=== PATIENT | female | born 1955 | race African-American/Black ===

== ENCOUNTER → 2016-06-26 | Outpatient (REF) | payer OTHER ==
[~2016-06-26] MED LIST: CALC1TAB21 PO; FISH1000 PO; FLUTISP; LORATAB PO
[2016-06-26 12:36] LABS: ALBUMIN 3.9 GM/DL (3.2-5.2); ALKALINE PHOSPHATASE 79 U/L (45-117); ALT/SGPT 28 U/L (12-78); ANION GAP 6 MEQ/L (8-16); AST/SGOT 20 U/L (15-37); BILIRUBIN,TOTAL 0.7 MG/DL (0.2-1.0); BLOOD UREA NITROGEN 20 MG/DL (7-18); CALCIUM LEVEL 8.7 MG/DL (8.8-10.2); CARBON DIOXIDE LEVEL 30 MEQ/L (21-32); CHLORIDE LEVEL 108 MEQ/L (98-107); CHOLESTEROL LEVEL 188 MG/DL (<200); CREATININE FOR GFR 1.08 MG/DL (0.55-1.02); GLOMERULAR FILTRATION RATE > 60.0 (>45); GLUCOSE, FASTING 84 MG/DL (80-110); SODIUM LEVEL 144 MEQ/L (136-145); TOTAL PROTEIN 6.9 GM/DL (6.4-8.2); TRIGLYCERIDES LEVEL 130 MG/DL (<150)
== END ==
LOC: M SFHCPLAZ 09:37
PROVIDERS: ATTEND Nurse Practitioner Family
DX: E78.2 Mixed hyperlipidemia (principal); E55.9 Vitamin D deficiency, unspecified

== ENCOUNTER → 2016-06-26 | Outpatient (CLI) | payer OTHER ==
--- NOTE | 2016-06-26 10:47 | REPMRS ---
Patient History The patient states she has not had a clinical breast exam in over a year. No known family history of cancer. Digital Mammo Screening Bilat: June 26, 2016 - Exam #: [id number] Bilateral CC and MLO view(s) were taken. Technologist: Colleen Suárez, Technologist Prior study comparison: April 25, 2015, bilateral digital mammo screening bilat performed at [facility]. October 10, 2012, bilateral digital mammo screening bilat performed at [facility]. FINDINGS: There are scattered fibroglandular densities. There has been no change in the appearance of the mammogram from the prior studies. There is a mild amount of residual fibroglandular tissue which is fairly symmetric. There is no interval development of dominant mass, architectural distortion, or clustered microcalcification suggestive of malignancy. ASSESSMENT: BI-RADS/ACR category 1 mammogram. Negative. Recommendation Routine screening mammogram in 1 year (for women over age 40). This mammogram was interpreted with the aid of an FDA-approved computer-aided dectection system. Electronically Signed By: Chris Minor MD 06/26/16 [id number]
== END ==
LOC: M RAD 08:37
PROVIDERS: ATTEND Nurse Practitioner Family
DX: Z12.31 Encounter for screening mammogram for malignant neoplasm of breast (principal)

== ENCOUNTER → 2016-12-07 | Outpatient (REF) | payer OTHER ==
[2016-12-07 11:46] LABS: MEAN CORPUSCULAR HEMOGLOBIN 30.2 pg (27.0-33.0); MEAN CORPUSCULAR HGB CONC 31.4 g/dl (32.0-36.5); PLATELET COUNT, AUTOMATED 229 10^3/uL (150-450); RED CELL DISTRIBUTION WIDTH 12.5 % (11.5-14.5); WHITE BLOOD COUNT 5.5 10^3/uL (4.0-10.0)
[2016-12-07 12:18] LABS: VITAMIN B12 LEVEL 340 PG/ML
[2016-12-07 12:20] LABS: FOLATE 3.6 NG/ML
[2016-12-07 12:24] LABS: ALBUMIN 3.8 GM/DL (3.2-5.2); ALBUMIN/GLOBULIN RATIO 1.19 (1.00-1.93); ALKALINE PHOSPHATASE 88 U/L (45-117); ALT/SGPT 23 U/L (12-78); ANION GAP 7 MEQ/L (8-16); AST/SGOT 13 U/L (15-37); BILIRUBIN,TOTAL 0.3 MG/DL (0.2-1.0); BLOOD UREA NITROGEN 29 MG/DL (7-18); CALCIUM LEVEL 9.1 MG/DL (8.8-10.2); CARBON DIOXIDE LEVEL 27 MEQ/L (21-32); CHLORIDE LEVEL 110 MEQ/L (98-107); CHOLESTEROL LEVEL 256 MG/DL (<200); CREATININE FOR GFR 1.16 MG/DL (0.55-1.02); GLOMERULAR FILTRATION RATE > 60.0 (>45); GLUCOSE, FASTING 84 MG/DL (80-110); SODIUM LEVEL 144 MEQ/L (136-145); TRIGLYCERIDES LEVEL 436 MG/DL (<150)
== END ==
LOC: M SFHCPLAZ 08:04
PROVIDERS: ATTEND Nurse Practitioner Family
DX: R53.83 Other fatigue (principal); E78.2 Mixed hyperlipidemia; E55.9 Vitamin D deficiency, unspecified

== ENCOUNTER → 2017-04-21 | Outpatient (REF) | payer OTHER | LOC: M SFHCPLAZ 08:32 | DX: E78.2 Mixed hyperlipidemia (principal); E66.01 Morbid (severe) obesity due to excess calories; E55.9 Vitamin D deficiency, unspecified | CPT/HCPCS: 36415 ==

== ENCOUNTER → 2017-04-27 | Outpatient (CLI) | payer OTHER ==
[2017-04-27 08:40] LABS: ESTIMATED AVERAGE GLUCOSE 105 MG/DL (60-110); HEMOGLOBIN A1c 5.3 %
[2017-04-27 08:45] LABS: ALBUMIN 3.5 GM/DL (3.2-5.2); ALBUMIN/GLOBULIN RATIO 1.21 (1.00-1.93); ALKALINE PHOSPHATASE 82 U/L (45-117); ALT/SGPT 22 U/L (12-78); ANION GAP 8 MEQ/L (8-16); AST/SGOT 16 U/L (7-37); BILIRUBIN,TOTAL 0.3 MG/DL (0.2-1.0); BLOOD UREA NITROGEN 14 MG/DL (7-18); CALCIUM LEVEL 8.7 MG/DL (8.8-10.2); CARBON DIOXIDE LEVEL 27 MEQ/L (21-32); CHLORIDE LEVEL 112 MEQ/L (98-107); CHOLESTEROL LEVEL 116 MG/DL (<200); CHOLESTEROL RISK RATIO 3.222 (<5); CREATININE FOR GFR 1.14 MG/DL (0.55-1.30); FREE T4 0.88 NG/DL (0.76-1.46); GLOMERULAR FILTRATION RATE > 60.0 (>45); GLUCOSE, FASTING 91 MG/DL (70-100); HDL CHOLESTEROL 36 MG/DL (>40); LDL CHOLESTEROL 47.4 MG/DL (<100); NON-HDL-C 80 MG/DL; POTASSIUM SERUM 3.8 MEQ/L (3.5-5.1); SODIUM LEVEL 147 MEQ/L (136-145); TOTAL PROTEIN 6.4 GM/DL (6.4-8.2); TRIGLYCERIDES LEVEL 163 MG/DL (<150)
[2017-04-27 10:01] LABS: TOTAL 25(OH) VITAMIN D 48.7 NG/ML (30.0-100.0)
== END ==
LOC: M LAB 07:33
DX: E78.2 Mixed hyperlipidemia (principal); E66.01 Morbid (severe) obesity due to excess calories; E55.9 Vitamin D deficiency, unspecified
CPT/HCPCS: 84443

== ENCOUNTER 2017-06-10 05:56 | Day surgery (SDC) | payer OTHER ==
[2017-06-10] MEDS ORDERED: ACETAMINOPHEN 325 MG TAB PO (06:00)
[2017-06-10] MEDS: TROPICAMIDE 1% OPHTH SOLN 2ML OS (06:30)
[2017-06-10] MEDS: PROPARACAINE 0.5% OPHTH SOL 15ML OS (06:30)
[2017-06-10] MEDS: OFLOXACIN 0.3 % (OCUFLOX) OPTH SOL 5ML OS (06:30)
[2017-06-10] MEDS: PHENYLEPHRINE 2.5% OPHTH SOL 2ML OS (06:30)
[2017-06-10] MEDS ORDERED: fentaNYL 100 MCG/2 ML INJECTION (J3010) As Ordered (06:52)
[2017-06-10] MEDS ORDERED: MIDAZOLAM INJ 2 MG/2 ML VIAL (J2250) As Ordered (06:52)
[2017-06-10] MEDS: POVIDONE-IODINE 5% OPHTH PREP SOL 30ML As Ordered (07:24)
[2017-06-10] MEDS: LIDOCAINE 0.75%/EPINEPHRINE 0.025% IN BSS 1ML SYR INTRACAMERAL (OR ONLY) As Ordered (07:32)
[2017-06-10] MEDS: BALANCED SALT IRRIGATION SOLUTION 500ML BAG (FOR OR EYE MACHINE) As Ordered (07:32)
[2017-06-10] MEDS: CEFUROXIME 1MG/0.1ML INTRACAMERAL INJ As Ordered (07:32)
[2017-06-10] MEDS: DUOVISC (0.50ML VISCOAT/0.55ML PROVISC) OPHTH KIT As Ordered (07:32)
[2017-06-10] MEDS ORDERED: TRIMETHOBENZAMIDE 300 MG CAP PO (08:00)
== END 2017-06-10 08:25 | disposition home or self-care (01) ==
LOC: M SDC 05:56
DX: H25.12 Age-related nuclear cataract, left eye (principal); E78.5 Hyperlipidemia, unspecified; G47.33 Obstructive sleep apnea (adult) (pediatric); M12.9 Arthropathy, unspecified; E66.01 Morbid (severe) obesity due to excess calories; Z68.41 Body mass index [BMI] 40.0-44.9, adult; Z79.899 Other long term (current) drug therapy; Z90.710 Acquired absence of both cervix and uterus
CPT/HCPCS: 66984

== ENCOUNTER → 2018-01-14 | Outpatient (CLI) | payer OTHER ==
[2018-01-14 13:38] LABS: ALBUMIN 3.8 GM/DL (3.2-5.2); ALBUMIN/GLOBULIN RATIO 1.27 (1.00-1.93); ALKALINE PHOSPHATASE 79 U/L (45-117); ALT/SGPT 25 U/L (12-78); ANION GAP 6 MEQ/L (8-16); AST/SGOT 18 U/L (7-37); BILIRUBIN,TOTAL 0.7 MG/DL (0.2-1.0); BLOOD UREA NITROGEN 15 MG/DL (7-18); CALCIUM LEVEL 8.8 MG/DL (8.8-10.2); CARBON DIOXIDE LEVEL 32 MEQ/L (21-32); CHLORIDE LEVEL 107 MEQ/L (98-107); CHOLESTEROL LEVEL 205 MG/DL (<200); CHOLESTEROL RISK RATIO 4.456 (<5); CREATININE FOR GFR 0.97 MG/DL (0.55-1.30); GLOMERULAR FILTRATION RATE > 60.0 (>45); GLUCOSE, FASTING 65 MG/DL (70-100); HDL CHOLESTEROL 46 MG/DL (>40); LDL CHOLESTEROL 139 MG/DL (<100); NON-HDL-C 159 MG/DL; SODIUM LEVEL 145 MEQ/L (136-145); TOTAL PROTEIN 6.8 GM/DL (6.4-8.2); TRIGLYCERIDES LEVEL 101 MG/DL (<150)
[2018-01-14 13:40] LABS: TOTAL 25(OH) VITAMIN D 63.8 NG/ML (30.0-100.0)
== END ==
LOC: M LAB 12:18
DX: E78.2 Mixed hyperlipidemia (principal)
CPT/HCPCS: 80053

== ENCOUNTER → 2018-05-19 | Outpatient (REF) | payer OTHER ==
[~2018-05-19] MED LIST changes: +CEFUROXIME; +FLUT50SP12; -FLUTISP; +ROSU10TA5 PO; +TESS100C PO; +VENTAER INH; +VITA50005 PO
[2018-05-19 13:14] LABS: INFLUENZA A AMPLIFICATION NEGATIVE (NEGATIVE); INFLUENZA B AMPLIFICATION NEGATIVE (NEGATIVE)
== END ==
LOC: M LAB REF 12:04
PROVIDERS: ATTEND Physician Assistant Medical
DX: J11.1 Influenza due to unidentified influenza virus with other respiratory manifestations (principal)

== ENCOUNTER 2018-05-22 09:31 | Emergency (ER) | payer OTHER ==
[~2018-05-22] VITALS: Ht 167.6 cm; Wt 109.1 kg
[~2018-05-22 09:31] MED LIST changes: -CEFUROXIME; -TESS100C PO; -VENTAER INH
[2018-05-22] MEDS ORDERED: CEFUROXIME (09:38)
[2018-05-22] MEDS ORDERED: ALBUTEROL SULFATE 2.5 MG/0.5 ML INH NEB SOLN NEB ONE (10:00)
[2018-05-22] MEDS ORDERED: predniSONE 20 MG TAB PO ONE (10:00)
--- NOTE | 2018-05-22 10:25 | REP ---
Clinical: Cough . Comparison: 04/11/2014 . Technique: PA and lateral. Findings: The mediastinum and cardiac silhouette are normal. The lung hussein are clear and without acute consolidation, effusion, or pneumothorax. The skeletal structures are intact and normal. Impression: 1. No acute cardiopulmonary process. Electronically Signed by Natanael Albrecht MD 05/22/2018 10:16 A
[2018-05-22] MEDS ORDERED: TESS100C PO (11:03)
[2018-05-22] MEDS ORDERED: VENTAER INH (11:03)
[2018-05-22 11:10] VITALS: BP 114/62
== END 2018-05-22 11:13 | disposition home or self-care (01) ==
LOC: M ED 09:31
DX: J06.9 Acute upper respiratory infection, unspecified (principal); E78.00 Pure hypercholesterolemia, unspecified; Z79.899 Other long term (current) drug therapy

== ENCOUNTER → 2018-07-18 | Outpatient (CLI) | payer OTHER ==
[~2018-07-18] MED LIST changes: +CEFUROXIME; +TESS100C PO; +VENTAER INH
--- NOTE | 2018-07-18 17:40 | REPMRS ---
Patient History The patient states she had a clinical breast exam in May 2018.No known family history of cancer. 3D TOMOSYNTHESIS WAS PERFORMED. Digital Mammo Screening Bilat: July 18, 2018 - Exam #: [id number] Bilateral CC and MLO view(s) were taken. Technologist: Ana Rosa Richardson, Technologist Prior study comparison: June 26, 2016, bilateral digital mammo screening bilat performed at [facility]. April 25, 2015, bilateral digital mammo screening bilat performed at [facility]. FINDINGS: There are scattered fibroglandular densities. There has been no change in the appearance of the mammogram from the prior studies. There is a mild amount of residual fibroglandular tissue which is fairly symmetric. There is no interval development of dominant mass, architectural distortion, or clustered microcalcification suggestive of malignancy. Assessment: BI-RADS/ACR category 1 mammogram. Negative Mammogram. Recommendation Routine screening mammogram in 1 year (for women over age 40). This mammogram was interpreted with the aid of an FDA-approved computer-aided dectection system. Electronically Signed By: Chris Minor MD 07/18/18 [id number]
== END ==
LOC: M RAD 16:45
PROVIDERS: ATTEND Nurse Practitioner Family
DX: Z12.31 Encounter for screening mammogram for malignant neoplasm of breast (principal)

== ENCOUNTER → 2018-09-23 | Outpatient (CLI) | payer OTHER ==
[~2018-09-23] MED LIST changes: -ROSU10TA5 PO; +ROSU10TA6 PO
[2018-09-23 07:56] LABS: ALBUMIN 3.8 GM/DL (3.2-5.2); ALT/SGPT 24 U/L (12-78); BILIRUBIN,TOTAL 0.6 MG/DL (0.2-1.0); BLOOD UREA NITROGEN 19 MG/DL (7-18); CALCIUM LEVEL 9.5 MG/DL (8.8-10.2); CARBON DIOXIDE LEVEL 29 MEQ/L (21-32); CHLORIDE LEVEL 110 MEQ/L (98-107); CHOLESTEROL LEVEL 191 MG/DL (<200); CHOLESTEROL RISK RATIO 4.658 (<5); GLOMERULAR FILTRATION RATE > 60.0 (>45); GLUCOSE, FASTING 90 MG/DL (70-100); HDL CHOLESTEROL 41 MG/DL (>40); LDL CHOLESTEROL 121 MG/DL (<100); NON-HDL-C 150 MG/DL; POTASSIUM SERUM 4.3 MEQ/L (3.5-5.1); SODIUM LEVEL 144 MEQ/L (136-145); TOTAL PROTEIN 6.9 GM/DL (6.4-8.2); TRIGLYCERIDES LEVEL 147 MG/DL (<150)
[2018-09-23 13:01] LABS: TOTAL 25(OH) VITAMIN D 31.2 NG/ML (30.0-100.0)
== END ==
LOC: M LAB 06:13
PROVIDERS: ATTEND Nurse Practitioner Family
DX: E78.2 Mixed hyperlipidemia (principal); E55.9 Vitamin D deficiency, unspecified

== ENCOUNTER → 2019-04-04 | Outpatient (CLI) | payer OTHER ==
--- NOTE | 2019-04-04 21:28 | ECHO ---
DATE OF PROCEDURE: 04/04/2019 REFERRING PROVIDER: CHOLO Henao PATIENT LOCATION: Outpatient. REASON FOR THE STUDY: Heart murmur. 2D MEASUREMENTS: IVS: 1.4 cm LV: 4.4 cm LVPW: 0.94 cm LA: 4.4 cm Aorta: 2.7 cm IVC: 1.76 cm DOPPLER MEASUREMENTS: Peak velocity across the aortic valve: 1.7 meters per second. Peak velocity across the LVOT: 1.2 meters per second. Mitral E: 1.1, Mitral A: 1.0 with a ratio of 1.1. Maximum tricuspid valve velocity: 2.6 meters per second. 2D COMMENTS: 1. Normal left ventricular size, wall thickness, and normal global left ventricular systolic function. The estimated left ventricular systolic ejection fraction is 60-65%. 2. Mildly enlarged left atrium. Normal right atrium and right ventricle. 3. The atrial septum appeared to be normal without evidence of defect or shunt. 4. Normal aortic root. 5. No pericardial effusion seen. 6. Mildly calcified aortic valve with normal leaflet excursion. Normal mitral valve, tricuspid valve, and pulmonic valve. The proximal pulmonary artery branches were not well visualized. 7. The inferior vena cava was normal in size, central venous pressure is most likely normal. DOPPLER: It detects trace aortic regurgitation, trace mitral regurgitation, mild tricuspid regurgitation. The calculated pulmonary artery systolic pressure varies between 30-40 mmHg. Assessment of the left ventricular diastolic function appeared to be normal. IMPRESSION: 1. Normal global left ventricular systolic and diastolic function. 2. Aortic valve sclerosis with trace aortic regurgitation and trivial aortic stenosis. 3. Trace mitral regurgitation with a mildly enlarged left atrium. 4. Mild tricuspid regurgitation with mild pulmonary hypertension. 5. Global Longitudinal Strain/GLS was calculated at minus 16%.
== END ==
LOC: M CARPUL 10:16
PROVIDERS: ATTEND Nurse Practitioner Family
DX: R01.1 Cardiac murmur, unspecified (principal)

== ENCOUNTER 2019-07-29 10:27 | Emergency (ER) | payer OTHER ==
[~2019-07-29] VITALS: Ht 170.2 cm; Wt 125.8 kg
[2019-07-29 13:13] VITALS: BP 125/69
--- NOTE | 2019-07-29 13:18 | REP ---
An lower extremity duplex, left: 07/29/2019. Indication: Left lower extremity swelling and pain. Comparison: None. Findings: Duplex and color flow Doppler interrogation of the left lower extremity deep venous system was performed. Compressibility, augmentation and color flow as well as Doppler flow was demonstrated within the common femoral, superficial, femoral and popliteal veins. Posterior tibial vein also demonstrated flow along its proximal visualized extent. Impression: No DVT. Electronically Signed by Toro Soliz DO 07/29/2019 01:10 P
--- NOTE | 2019-07-29 15:26 | REP ---
Four views left femur and five views left knee: 07/29/2019. Indication: Left leg pain. Comparison: None. Findings: There is no acute fracture, subluxation or dislocation. Lobulated calcifications are noted in the suprapatellar region. There is narrowing of the medial compartment. Lateral and medial osteophytic spurring of the tibia and femur are noted at the knee joint. There is considerable narrowing of the patellofemoral compartment. No lytic or blastic lesions are present. Impression: No acute fracture. 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 Electronically Signed by Toro Soliz DO 07/29/2019 03:18 P
--- NOTE | 2019-07-29 15:26 | REP ---
Four views left femur and five views left knee: 07/29/2019. Indication: Left leg pain. Comparison: None. Findings: There is no acute fracture, subluxation or dislocation. Lobulated calcifications are noted in the suprapatellar region. There is narrowing of the medial compartment. Lateral and medial osteophytic spurring of the tibia and femur are noted at the knee joint. There is considerable narrowing of the patellofemoral compartment. No lytic or blastic lesions are present. Impression: No acute fracture. 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 Electronically Signed by Toro Soliz DO 07/29/2019 03:18 P
== END 2019-07-29 13:16 | disposition home or self-care (01) ==
LOC: M ED 10:27
DX: M25.562 Pain in left knee (principal); M79.605 Pain in left leg

== ENCOUNTER → 2019-08-09 | Outpatient (CLI) | payer OTHER ==
[2019-08-09 13:00] LABS: ALBUMIN 3.9 GM/DL (3.2-5.2); ALT/SGPT 21 U/L (12-78); BILIRUBIN,TOTAL 0.7 MG/DL (0.2-1.0); BLOOD UREA NITROGEN 12 MG/DL (7-18); CARBON DIOXIDE LEVEL 29 MEQ/L (21-32); CHLORIDE LEVEL 110 MEQ/L (98-107); CHOLESTEROL LEVEL 215 MG/DL (<200); CHOLESTEROL RISK RATIO 5.657 (<5); CREATININE FOR GFR 1.07 MG/DL (0.55-1.30); FREE T4 0.95 NG/DL (0.76-1.46); GLOMERULAR FILTRATION RATE > 60.0 (>45); GLUCOSE, FASTING 76 MG/DL (70-100); HDL CHOLESTEROL 38 MG/DL (>40); LDL CHOLESTEROL 137 MG/DL (<100); NON-HDL-C 177 MG/DL; POTASSIUM SERUM 3.9 MEQ/L (3.5-5.1); SODIUM LEVEL 145 MEQ/L (136-145); TRIGLYCERIDES LEVEL 198 MG/DL (<150)
[2019-08-09 13:03] LABS: TOTAL 25(OH) VITAMIN D 37.5 NG/ML (30.0-100.0)
== END ==
LOC: M LAB 11:33
PROVIDERS: ATTEND Nurse Practitioner Family
DX: E78.2 Mixed hyperlipidemia (principal); E55.9 Vitamin D deficiency, unspecified; E66.01 Morbid (severe) obesity due to excess calories; Z68.41 Body mass index [BMI] 40.0-44.9, adult

== ENCOUNTER → 2019-12-26 | Outpatient (CLI) | payer OTHER ==
--- NOTE | 2019-12-26 18:21 | REPMRS ---
Patient History The patient states she has not had a clinical breast exam in over a year. No known family history of cancer. Digital Woman Screen Mammo: December 26, 2019 - Exam #: [id number] Bilateral CC and MLO view(s) were taken. Technologist: Xochitl Paulino, Technologist Prior study comparison: July 18, 2018, bilateral digital mammo screening bilat, performed at [facility]. June 26, 2016, bilateral digital mammo screening bilat, performed at [facility]. April 25, 2015, bilateral digital mammo screening bilat, performed at [facility]. FINDINGS: There are scattered fibroglandular densities. The Volpara volumetric breast density category is:B. There has been no change in the appearance of the mammogram from the prior studies. There is a mild amount of scattered fibroglandular density which is fairly symmetric. There is no interval development of dominant mass, architectural distortion, or grouped microcalcification suggestive of malignancy. 3-D tomosynthesis shows no additional findings. Assessment: BI-RADS/ACR category 1 mammogram. Negative Mammogram. Recommendation Routine screening mammogram of both breasts in 1 year (for women over age 40). This patient's Lifetime Breast Cancer Risk is estimated at 3.9 %. This mammogram was interpreted with the aid of an FDA-approved computer-aided dectection system. Electronically Signed By: Mohinder Brambila MD 12/26/19 [id number]
== END ==
LOC: M WHC 12:59
PROVIDERS: ATTEND Nurse Practitioner Family
DX: Z12.31 Encounter for screening mammogram for malignant neoplasm of breast (principal)

== ENCOUNTER → 2020-06-09 | Outpatient (CLI) | payer OTHER ==
--- NOTE | 2020-06-11 15:35 | SLEEPCENT ---
DATE: 06/09/2020 ORDERED BY: Stephenie Lal Nocturnal polysomnography was performed for the retitration of pressure therapy in this patient with obstructive sleep apnea syndrome. For testing, ResMed AirTouch F20 full-face mask of large size. There was 14 of water pressure applied to the circuit, and the lights were extinguished. There was 8 hours and 6 minutes of data reviewed. There was 423 minutes of sleep identified. Sleep latency was normal at 11.5 minutes. REM latency was short at 47 minutes. Sleep architecture was good with four REM cycles. Overall sleep efficiency was 88%. The electrocardiogram showed a sinus rhythm with an average heart rate of 60 beats per minute. EEG showed normal waveforms for wake and sleep. Respiratory events were fully palliated with CPAP at a pressure of 14. There was some minor activity in the limb leads. Limb movement arousal index was 6. IMPRESSION: Obstructive sleep apnea syndrome (G47.33). RECOMMENDATION: Nightly use of pressure therapy, 14 cm of water.
== END ==
LOC: M SLEEP 20:00
PROVIDERS: ATTEND Nurse Practitioner Adult Health
DX: G47.33 Obstructive sleep apnea (adult) (pediatric) (principal)

== ENCOUNTER → 2020-09-16 | Outpatient (CLI) | payer OTHER ==
[~2020-09-16] MED LIST changes: +D-101000
[2020-09-16 18:12] LABS: ALBUMIN 4.1 GM/DL (3.2-5.2); ALT/SGPT 24 U/L (12-78); BILIRUBIN,TOTAL 0.6 MG/DL (0.2-1.0); BLOOD UREA NITROGEN 13 MG/DL (7-18); CALCIUM LEVEL 8.8 MG/DL (8.8-10.2); CARBON DIOXIDE LEVEL 28 MEQ/L (21-32); CHLORIDE LEVEL 109 MEQ/L (98-107); CHOLESTEROL LEVEL 150 MG/DL (<200); CHOLESTEROL RISK RATIO 3.333 (<5); GLOMERULAR FILTRATION RATE > 60.0 (>45); GLUCOSE, FASTING 67 MG/DL (70-100); HDL CHOLESTEROL 45 MG/DL (>40); LDL CHOLESTEROL 79 MG/DL (<100); NON-HDL-C 105 MG/DL; POTASSIUM SERUM 4.2 MEQ/L (3.5-5.1); SODIUM LEVEL 143 MEQ/L (136-145); TOTAL PROTEIN 7.1 GM/DL (6.4-8.2); TRIGLYCERIDES LEVEL 128 MG/DL (<150)
== END ==
LOC: M LAB 14:52
PROVIDERS: ATTEND Nurse Practitioner Family
DX: E78.2 Mixed hyperlipidemia (principal)

== ENCOUNTER 2020-11-12 10:40 | Emergency (ER) | payer OTHER ==
[~2020-11-12] VITALS: Ht 167.6 cm; Wt 117.6 kg
[2020-11-12 10:40] VITALS: BP 143/78
[~2020-11-12 10:40] MED LIST changes: -D-101000
[2020-11-12] MEDS ORDERED: D-101000 (11:06)
== END 2020-11-12 13:10 | disposition left against medical advice (07) ==
LOC: M ED 10:40
DX: Z53.21 Procedure and treatment not carried out due to patient leaving prior to being seen by health care provider (principal)

== ENCOUNTER → 2021-06-27 | Outpatient (CLI) | payer OTHER ==
[~2021-06-27] MED LIST changes: +D-101000
[2021-06-27 16:54] LABS: BASO % 0.2 % (0.0-1.0); EOS # 0.2 10^3/uL (0.0-0.5); EOS % 3.4 % (0.0-3.0); HEMATOCRIT 37.4 % (36.0-47.0); HEMOGLOBIN 11.9 g/dl (12.0-15.5); LYMPH # 2.8 10^3/uL (1.5-5.0); MEAN CORPUSCULAR HEMOGLOBIN 30.2 pg (27.0-33.0); MEAN CORPUSCULAR HGB CONC 31.8 g/dl (32.0-36.5); MEAN CORPUSCULAR VOLUME 94.9 fl (80.0-96.0); MONO # 0.3 10^3/uL (0.0-0.8); MONO % 5.1 % (2.0-8.0); NEUTROPHILS # 2.8 10^3/uL (1.5-8.5); NEUTROPHILS % 45.1 % (36.0-66.0); PLATELET COUNT, AUTOMATED 215 10^3/uL (150-450); RED BLOOD COUNT 3.94 10^6/uL (4.00-5.40); WHITE BLOOD COUNT 6.1 10^3/uL (4.0-10.0)
[2021-06-27 17:35] LABS: ALBUMIN 3.7 GM/DL (3.2-5.2); BILIRUBIN,TOTAL 0.4 MG/DL (0.2-1.0); CALCIUM LEVEL 9.2 MG/DL (8.8-10.2); CHOLESTEROL RISK RATIO 3.796 (<5); CREATININE FOR GFR 1.26 MG/DL (0.55-1.30); FREE T4 0.81 NG/DL (0.76-1.46); GLOMERULAR FILTRATION RATE 54.5 (>45); PERCENT SATURATION 19.4 % (13.2-45.0); THYROID STIMULATING HORMONE 1.56 uIU/ML (0.358-3.740); TOTAL 25(OH) VITAMIN D 25.9 NG/ML (30.0-100.0); TOTAL PROTEIN 6.5 GM/DL (6.4-8.2)
[2021-06-27 17:50] LABS: HEMOGLOBIN A1c 5.3 %
== END ==
LOC: M LAB 16:34
PROVIDERS: ATTEND Physician Assistant
DX: E78.2 Mixed hyperlipidemia (principal); R53.83 Other fatigue; E55.9 Vitamin D deficiency, unspecified; Z68.41 Body mass index [BMI] 40.0-44.9, adult

== ENCOUNTER → 2021-09-17 | Outpatient (CLI) | payer MEDICARE, OTHER | LOC: M WHC 12:44 | PROVIDERS: ATTEND Physician Assistant | DX: Z12.31 Encounter for screening mammogram for malignant neoplasm of breast (principal) ==